=== PATIENT | female | born 1980 | race Hispanic/Latino ===

== ENCOUNTER 2016-06-04 08:51 | Inpatient (IN) | payer MEDICAID ==
[~2016-06-04] VITALS: Ht 165.1 cm; Wt 89.8 kg
[~2016-06-04 08:51] MED LIST: Carboprost 250 mCg/mL Inj IM PRN; DOCU-42 PO; Hemorrhage Kit, Post Partum XX ONE; IBUP-1149 PO; Lactated Ringer's 1,000 ML IV SCH; Methylergonovine 0.2 mg/mL Inj IM PRN; OXYC-176 PO; Oxytocin 10 Unit/mL Inj IM PRN; PREN1TAB47 PO; Sodium Citrate-Citric Acid 15 mL Solution PO SCH
[2016-06-04] MEDS ORDERED: CeFAZolin Inj 2 GM in IV Premix 1 EACH IV ONE (09:00)
[2016-06-04] MEDS ORDERED: Ondansetron 2 mg/mL 2 mL Inj ONE (10:09)
[2016-06-04] MEDS ORDERED: Morphine PF 1 mg/mL 10 mL Inj ONE (10:09)
[2016-06-04 10:12] LABS: Mean Corpuscular Hemoglobin 27.9 pg (27.0-35.0); Mean Corpuscular Volume 85.4 fL (81-100)
--- NOTE | 2016-06-04 10:45 | PCM.HPOB ---
Subjective Date of Service: Jun 04, 2016 Referring Provider: Admitting Physician: Joan Kang MD Primary Care Physician: Rosalba Hutchison MD Attending Physician: Joan Kang MD Chief Complaint Scheduled repeat CD. History of Present History of Present Illness 35 Y/O LISA 06/11/16 by LMP and consistent with 7 weeks US. complicated with: 1. Previous CDX3, PCD, FTP, then 2 elective LTCS 2008, 2010. 2. AMA 3. Declined sterilization 4. Exposure to weight loss herbal formula in first 2 weeks of . 5. GBS positive 06/06/16 Past Medical History Obstetrical History: 2003, PCD for FTP at 40 weeks , 9 lb, regional anaesthesia. 2008, RCD at 39 weeks , 8 lb, regional anaesthesia. 2010 RCD at 39 weeks 7 lb , regional Anaesthesia . Gynecologic History: Regular menstrual cycles. no Hx of STI. Medical History: non contributory Surgical History: CDX3 Hx Tobacco Use: No Hx Alcohol Use: No Past Family History Family History HTN; Father. DM: none. Cancer: none Twins: 's sisters. No FHX of congenial or developmental disease. Review of Systems ROS 10 points ROS is negative except for items mentioned in HPI. Allergy Coded Allergies: No Known Allergies (Unverified , 11/02/08) Exam Vital Signs 117/62, 81, 18, 36.9. Exam 135 moderate variabilty, positive acclerations, no declerations. TOCO: contractions every 3-5 min , pt not feeling them Constitutional: Well-developed HEENT: Atraumatic, PERRLA Lungs: Clear to Auscultation Heart: Regular Rate/Rhythm, Normal S1, Normal S2 Abdomen: Gravid (EFW 7 lb ) Extremities: Pulses Palpable x4 Neurological/Psychiatric: Alert, Oriented X3 Neuro: Reflexes 2+ Labs/Diagnostics Lab/Diagnostic Information Laboratory Tests 72 Hours Test 06/04/16 09:45 White Blood Count 9.7th/mm3 (3.8-10.1) Red Blood Count 4.26mil/mm3 (3.90-5.20) Hemoglobin 11.9g/dL (12.0-15.6) Hematocrit 36.4% (35.0-46.0) Mean Corpuscular Volume 85.4fL (81-100) Mean Corpuscular Hemoglobin 27.9pg (27.0-35.0) Mean Corpuscular Hemoglobin Concent 32.7% (32.0-37.0) Red Cell Distribution Width 14.9% (12.3-15.4) Platelet Count 245bil/L (150-400) Maternal Blood Type: O (positive) Antibody Screen: negative Group B Strep Results: Positive Rubella: Immune Additional Information Hep B Ag NR HIV NR RPR NR Quad screen negative Pap smear WNL , HPV negative 12/01/15 GC/Ct negative 12/01/15 OB Intrapartum Assessment/Plan Assessment 35 Y/O LISA 06/11/16t 39 w0d by LMP and consistent with 7 weeks US. complicated with: 1. Previous CDX3, PCD, FTP, then 2 elective LTCS 2008, 2010. 2. AMA 3. Declined sterilization 4. Exposure to weight loss herbal formula in first 2 weeks of . 5. GBS positive 06/06/16 Admit for scheduled repeat CD , declined tubal ligation. R/B/A of CD reviewed and Informed consent was signed. Joan Kang MD Jun 04, 2016 10:45
[2016-06-04] MEDS ORDERED: Morphine PF 1 mg/mL 10 mL Inj EPIDURAL ONE (13:00)
[2016-06-04] MEDS ORDERED: Oxytocin 30 Units/500 mL LR 30 UNITS in IV Premix 1 EACH IV PRN (14:05)
[2016-06-04] MEDS ORDERED: Sodium Chloride LOK Flush 10 mL Syringe IVFLUSH PRN (14:05)
[2016-06-04] MEDS ORDERED: Methylergonovine 0.2 mg/mL Inj IM PRN (14:05)
[2016-06-04] MEDS ORDERED: LANOlin HPA 7 Gm Ointment TOPICAL PRN (14:05)
[2016-06-04] MEDS ORDERED: hydrOXYzine Pamoate 25 mg Capsule PO PRN (14:05)
[2016-06-04] MEDS ORDERED: Carboprost 250 mCg/mL Inj IM PRN (14:05)
[2016-06-04] MEDS ORDERED: Oxytocin 10 Unit/mL Inj IM PRN (14:05)
[2016-06-04] MEDS ORDERED: Hemorrhage Kit, Post Partum XX ONE (14:05)
--- NOTE | 2016-06-04 14:34 | PCM.HPANE ---
Patient Data Surgeon Admitting Provider:Joan Kang MD Attending Provider:Joan Kang MD Primary Care Physician:Rosalba Hutchison MD Other Provider:Rowan Blackwell Anesthesia Reason for Visit Repeat Repeat Ht/WT & BMI Body Mass Index Allergies Coded Allergies: No Known Allergies (Unverified , 11/02/08) Medications Reported Medications Docusate Sod-Expunged Drug, Do Not Renew! 100 Mg [id number] Mg PO BID 12/17/10 IBUPROFEN-Expunged Drug, Do Not Renew! 600 Mg [id number] Mg PO Q6 12/17/10 Oxycodone/APAP-Expunged Drug, Do Not Renew! (Percocet 5/325-Expunged Drug, Do Not Renew!)1 Each Tablet1 Tab PO Q6 12/17/10 Vit/Fe Fumarate/Fa-Expunged Drug, Do (-Expunged Drug, Do Not Renew!)1 Tab Tablet1 Tab PO DAILY Ref 0 11/02/08 History Smoking Status: Never Smoker Stop/Bang Risk Assessment Category Category 1A: Patient has history of documented sleep apnea, and HAS NOT received any narcotic, sedative or anesthesia administration during this stay. Category 1B: Patient has history of documented sleep apnea, and HAS received any narcotic , sedative or anesthesia administration during this stay Category 2: Patient has SUSPECTED Obstructive Sleep Apnea, and HAS received any narcotic , sedative or anesthesia administration during this stay. Category 3: Patient has SUSPECTED Obstructive Sleep Apnea and HAS NOT received narcotic, sedative or anesthesia administration during this stay. Category 4: Outpatient in Procedural Areas with known sleep apnea or who screen positive for High Risk via the STOP/BANG questionnaire. Exam Exam General Appearance: Alert, Oriented X3, Cooperative, No Acute Distress HEENT/AIRWAY: MP 2, Neck Movement (FROM), Mouth Opening (3 FBMO) Lungs: Clear to Auscultation, Normal Air Movement Heart: Exam Unremarkable, Regular Rate/Rhythm, No Murmurs/Rubs/Gallops Meds/Labs/Diagnostics Admission Meds Current Medications Lactated Ringer's (Lr) 1,000 ml @ 125 mls/hr Q8H IV Last administered on t 09:56; Start 06/04/16 at 06:00; Stop 06/04/16 at 13:59 Citric Acid/ Sodium Citrate (Bicitra) 30 ml PREOP PO Last administered on t 09:56; Start 06/04/16 at 06:00; Stop 06/04/16 at 08:53; Status DC Labs Test 06/04/16 09:45 White Blood Count 9.7th/mm3 (3.8-10.1) Red Blood Count 4.26mil/mm3 (3.90-5.20) Hemoglobin 11.9g/dL (12.0-15.6) Hematocrit 36.4% (35.0-46.0) Mean Corpuscular Volume 85.4fL (81-100) Mean Corpuscular Hemoglobin 27.9pg (27.0-35.0) Mean Corpuscular Hemoglobin Concent 32.7% (32.0-37.0) Red Cell Distribution Width 14.9% (12.3-15.4) Platelet Count 245bil/L (150-400) Plan Impression Patient chart reviewed, patient interviewed and anesthestic plan with risks, benefits, and alternatives discussed, and informed consent obtained. NPO Status: > 8hrs ASA Physical Status: ASA1 Normal Healthy Anesthetic Plan: SAB Bene/Risks/Altern/Consents: Yes HP Complete Prior to Induction: Yes Tristen Day MD Jun 04, 2016 10:43
[2016-06-04] MEDS ORDERED: Dexamethasone 4 mg/mL Inj IVPUSH PRN (14:35)
[2016-06-04] MEDS ORDERED: fentaNYL-PF 50 mCg/mL 2 mL Inj IVPUSH PRN (14:35)
[2016-06-04] MEDS ORDERED: EPHEDrine Sulfate 50 mg/mL Inj IVPUSH PRN (14:35)
[2016-06-04] MEDS ORDERED: Atropine 0.4 mg/mL Inj IV PRN (14:35)
[2016-06-04] MEDS ORDERED: MetoCLOpramide 5 mg/mL 2 mL Inj IVPUSH PRN (14:35)
--- NOTE | 2016-06-04 14:35 | PCM.ANEP2 ---
Post Anesthesia Evaluation ASA/CMS Post Anesthesia VS in Patient's Normal Range?: Yes Resp Stable; Airway Patent?: Yes CV Function & Hydration Stable: Yes Mental Status Recovered?: Yes Pain control Satisfactory?: Yes N/V Control Satisfactory?: Yes Tristen Day MD Jun 04, 2016 14:35
--- NOTE | 2016-06-04 14:35 | PCM.ANEP1 ---
Post Anesthesia Phase 1 PACU Phase 1 Assessment Date of Service: Jun 04, 2016 Anesthetic Administered: SAB Level of Alertness: Awake, talking SILVA's with Equal Strength: No (SAB still working) Pain: No Nausea or Vomiting: No Oxygen Delivery: Room Air Lungs: Clear to Auscultation, Normal Air Movement Dermatome Level: T12 (Symphysis Pubis) Summary Vital signs within normal limits, see nursing records Tristen Day MD Jun 04, 2016 14:35
[2016-06-04] MEDS: Lactated Ringer's 1,000 ML IV SCH ×2 (14:42→21:24)
[2016-06-04] MEDS: Ondansetron 2 mg/mL 2 mL Inj IVPUSH PRN ×2 (14:42→15:22)
--- NOTE | 2016-06-04 15:18 | OP ---
[address] [address] OPERATIVE REPORT PATIENT: ROSALVA AMADOR I : 1980 MR#: [id number] ADMIT: 06/04/2016 JOB ID: [id number] DATE OF SURGERY: 06/04/2016 PREOPERATIVE DIAGNOSIS(ES): Intrauterine at 39 weeks and zero days. Previous three deliveries. POSTOPERATIVE DIAGNOSIS(ES): Status post repeat section x4. PROCEDURE: Repeat low transverse section via Pfannenstiel skin incision. COMPLICATIONS: None. SURGEON: Joan Kang MD. CORRECTIONAL AGENCY DIRECTOR: Renetta Dunham MD. Senior Data Modeler was required for retraction and exposure and safe delivery of the infant. IMPLANTS: None. BLOOD PRODUCT ADMINISTRATION: None. BLOOD LOSS: 700 mL. ANESTHESIA: Spinal. INTRAVENOUS FLUID: 2300 mL of crystalloid fluid. URINE OUTPUT: 200 mL of clear urine. SPECIMENS: Placenta was discarded. FINDINGS: A female delivered in cephalic presentation (JESICA). Apgars 8 and 9 at one and five minutes respectively. Weight 3425 g, equivalent to 7 pounds 9 ounces. Clear amniotic fluid. There were extensive intraperitoneal adhesions that limited the ability to exteriorize the uterus. Evaluation of the uterus by palpation revealed a normal uterus without any palpable masses. Normal adnexa to palpation. PROCEDURE: After informed consent was obtained, patient was taken to the operation room. She was placed under spinal anesthesia. She was placed in supine position with left lateral tilt. She was prepped and draped in usual sterile fashion for abdominal procedure. Pfannenstiel skin incision was made along the line of the previous scar. The initial skin incision was carried down to the fascia with sharp dissection and Bovie cautery. The initial fascial incision was made with a scalpel and was extended bilaterally with curved Michelle scissors. The inferior aspect of the fascia was grasped on either sides of the midline with Chrissy clamps and was dissected off the underlying rectus muscles with blunt and sharp dissection. The superior aspect of the fascial layer was grasped on either side of the midline with Chrissy clamps, and was dissected off the underlying rectus muscles with sharp dissection. Moderate amount of adhesion was noted at this level. Then, the rectus muscles were in the midline. The peritoneum was identified and entered high in the abdomen in area clear of vascularity and no adhesion. Then, the peritoneal opening was extended with sharp dissection with Metzenbaum scissors and area cleared of adhesion or any attached bowel or bladder. Then, the bladder blade was placed. The bladder reflection was identified and bladder flap was created with Metzenbaum scissors. The bladder blade was repositioned. Lower uterine incision was made with a scalpel in a transverse fashion. The incision was then extended bilaterally with bandage scissors. Amniotomy was performed. Clear fluid was noted. The delivered in cephalic position in occiput anterior position with the assistance of fundal pressure. There was no nuchal cord. Delayed cord clamp was performed after 1 minute of delivery. The infant was handed off to the waiting nursing staff. The placenta was delivered manually. The uterus was not exteriorized secondary to dense adhesions on the left side. Palpation to the uterine wall and adnexa was performed and no any palpable masses were appreciated. The uterine cavity was cleared of any remaining clots and debris. The uterine incision was closed with 0-Vicryl in a running fashion, then three [id number] stitches were placed at the uterine incision for hemostasis followed by a second imbricating layer using 0 Monocryl. A [id number] stitch was placed on the right corner of the incision for hemostasis. A bleeding serosal surface was noted at site of the bladder reflection. Flow seal was applied for hemostasis. The uterine incision was re-examined. Hemostasis was ensured. Then the rectus muscles were approximated with simple interrupted stitches of 2-0 chromic. The subfascial layer was examined and hemostasis was ensured. Then, the fascia was closed with 0-Vicryl in a running fashion. The subcutaneous layer was approximated with several interrupted stitches of 2-0 chromic. The skin was closed with 4-0 Vicryl on a Ryan needle in subcuticular fashion. Steri-Strips were applied. The patient did receive 2 g of Ancef prior to the skin incision. All instrument, needles and sponge count were correct x2. The patient and infant were transferred to the recovery room in stable condition. Joan Waite MD, was present and scrubbed for the entire procedure. CEE
[2016-06-04] MEDS: Acetaminophen IV 1,000 MG in IV Premix 1 EACH IV PRN ×2 (15:40→22:14)
[2016-06-04] MEDS ORDERED: Promethazine 25 mg/mL Inj IV PRN (17:25)
[2016-06-04] MEDS ORDERED: Promethazine Inj 25 MG in 0.9% Sodium Chloride 50 ML IV PRN (17:55)
[2016-06-05] MEDS: Acetaminophen IV 1,000 MG in IV Premix 1 EACH IV PRN (04:31)
[2016-06-05 07:20] LABS: Mean Corpuscular Hemoglobin 27.9 pg (27.0-35.0); Mean Corpuscular Volume 86.6 fL (81-100)
[2016-06-05] MEDS ORDERED: Ascorbic Acid 500 mg Tablet PO SCH (08:00)
--- NOTE | 2016-06-05 10:44 | PCM.PNOBPP ---
Subjective Date of Service Jun 05, 2016 Post : Repeat Ceserean Delivery Lochia: Normal Pain Management: PO pain meds Gastrointestinal: Good Appetite, No N/V Postop Activity: Ambulating Independently, Other (womack cath removed this AM no voiding yet. ) Group B Strep Results: Positive Rubella: Immune Blood Type: O (positive) Labs Laboratory Tests 06/05/16 07:00: White Blood Count 11.7, Red Blood Count 3.65, Hemoglobin 10.2, Hematocrit 31.6, Mean Corpuscular Volume 86.6, Mean Corpuscular Hemoglobin 27.9, Mean Corpuscular Hemoglobin Concent 32.3, Red Cell Distribution Width 14.9, Platelet Count 201 Exam Vital Signs Vital Signs 104/53 75 16 99%on RA 36.7 Vital Signs: VS reviewed, stable Exam Abdomen: Fundus firm Extremities: No edema Lungs: Clear to Auscultation Heart: Regular Rate/Rhythm, Normal S1 General: Alert, Oriented X3, Cooperative, No Acute Distress Surgical Wound : Wound Location/Description bandage removed, half soaked with blood (~ 20 cc) no active bleeding or drainage from the incision. Incision General Appearence: Radha, Steri Strips, Intact, No Erythemia, No Discharge OB Post Assessment/Plan Assessment 35 Y/O 1. POD #1 S/P Repeat CD (06/04/16) 2. Post operative Anemia started on iron BID. complicated with: 1. Previous CDX3, PCD, FTP, then 2 elective LTCS 2008, 2010. 2. AMA 3. Declined sterilization 4. Exposure to weight loss herbal formula in first 2 weeks of . 5. GBS positive 06/06/16 Appropriate post operative recovery. Monitor for voiding. Encourage ambulation. Post plan: Other (anticipate discharge home tomorrow. ) Joan Kang MD Jun 05, 2016 10:39
[2016-06-06] MEDS: oxyCODONE-Acetamin 5-325 mg Tablet PO PRN ×2 (04:31→12:09)
--- NOTE | 2016-06-06 11:54 | PCM.DIOB ---
Obstetrical Disch Instruction Date of Service: Jun 06, 2016 Dates of Hospitalization Date of Hospital Admission Jun 04, 2016 at 08:51 Providers Admitting Physician: Joan Kang MD Primary Care Physician: Rosalba Hutchison MD Attending Physician: Joan Kang MD Discharge Diagnosis Discharge Diagnosis 1. POD #2 S/P Repeat CD (06/04/16) 2. Post operative Anemia Post Operative diagnosis 1. S/P Repeat CD (06/04/16) 2. Post operative Anemia Problems: Diet Discharge Diet: No restrictions Activity Discharge Activity-General: Pelvic Rest for 6 weeks, Try not to overdue, Be up and about, Balance rest and activity, No lifting >15 pounds for 2 weeks Dressing and Incisional Care Dressing Care: Keep dressing clean, dry & intact, Allow Steri Stripes to fall off Hygiene: May shower, NO bathtub, hot tub or whirlpool Additional Instructions Discharge Instructions Follow Up Plan Follow Up Plan Please follow up with [facility]EC[employer] in 2 weeks Call your provider for: Fever or Chills, Shortness of breath, Heavy vaginal bleeding, Heavy bleeding, Epigastric pain, Excessive constipation, Vaginal discomfort, Red painful breasts Emelia Ervin DO Jun 06, 2016 11:54
[2016-06-06] MEDS ORDERED: OXYC1TAB24 PO (12:02)
[2016-06-06] MEDS ORDERED: FERR-74 PO (12:02)
[2016-06-06] MEDS ORDERED: IBUP-1827 PO (12:03)
[2016-06-06] MEDS ORDERED: DOCU-41 PO (12:04)
[2016-06-06] MEDS ORDERED: ASCO500C6 PO (12:04)
[2016-06-06 12:22] VITALS: BP 113/55; PULSE 97; RESP 18
--- NOTE | 2016-06-06 12:22 | PCM.DC.OB ---
Obstetrical Discharge Summary Date of Service Jun 06, 2016 Date of hospital admission Jun 04, 2016 at 08:51 Date of Discharge: Jun 06, 2016 Providers Admitting Physician: Joan Kang MD Primary Care Physician: Rosalba Hutchison MD Attending Physician: Joan Kang MD Diagnosis at Time of Discharge Status post repeat section x4 Post operative anemia Problems: Invasive procedures Repeat Date of Procedure: Jun 04, 2016 Brief History and Physical: Patient is a 35 Y/O female at 39 weeks LISA 06/11/16 by LMP and consistent with 7 weeks US admitted for scheduled repeat CD , declined tubal ligation. complicated with previous CDX3, PCD, FTP, then 2 elective LTCS 2008, 2010, AMA, exposure to weight loss herbal formula in first 2 weeks of , GBS positive 06/06/16. Repeat low transverse section via Pfannenstiel skin incision performed by Joan Kang MD on 06/04/2016. There were no complications.patient had post operative anemia. On the day of discharge patient's vital signs are stable, patient is alert and oriented X3, lungs are clear to auscultation, cardiovascular exam is unremarkable, abdomen is soft and moderately tender, incision site with steri strips, no erythema, edema, no signs of infection, no lower extremities edema. Patient is ambulating independently, passing flatus, urinating without difficulties, tolerating PO intake. Pain is controlled well with oral medications. She is . Post delivery laboratories came back showing hemoglobin 10.2, hematocrit 31.6, white blood cell count 11.7. She received iron supplements. The patient was discharged home in stable condition with all discharge criteria met on day two. Hospital Course: Patient is a 35 Y/O female at 39 weeks gestation admitted on 2016for scheduled repeat CD, declined tubal ligation. Repeat low transverse section via Pfannenstiel skin incision performed by Joan Kang MD on 06/04/2016. There were no complications. Patient discharged home on POD day #2. Ascorbic Acid (Vitamin C) 500 Mg Capsule.er 500 MG PO DAILY Prescribed by: SCOTTY ERVIN, DO Docusate Sod-Expunged Drug, Do Not Renew! (Docusate Sod-Expunged Drug, Do Not Renew!) 100 Mg Capsule 100 MG PO BID (Reported) Docusate Sodium (Colace) 100 Mg Capsule 100 MG PO BID PRN PRN For Constipation Prescribed by: SCOTTY ERVIN DO Ferrous Sulfate (Feosol) 325 Mg Tablet 325 MG PO BIDWM Prescribed by: SCOTTY ERVIN DO IBUPROFEN-Expunged Drug, Do Not Renew! (IBUPROFEN-Expunged Drug, Do Not Renew!) 600 Mg Tablet 600 MG PO Q6 (Reported) Ibuprofen (Ibuprofen) 600 Mg Tablet 600 MG PO QID PRN PRN For Pain Prescribed by: SCOTTY ERVIN DO Oxycodone/APAP-Expunged Drug, Do Not Renew! (Percocet 5/325-Expunged Drug, Do Not Renew!) 1 Each Tablet 1 TAB PO Q6 (Reported) Vit/Fe Fumarate/Fa-Expunged Drug, Do (-Expunged Drug, Do Not Renew!) 1 Tab Tablet 1 TAB PO DAILY (Reported) oxyCODONE-Acetaminophen 5-325 mg (oxyCODONE-Acetaminophen 5-325 mg) 1 Each Tablet 1 TAB PO Q6H PRN PRN For Pain Prescribed by: SCOTTY ERVIN DO Discharge Medications: Ferrous sulfate 325 mg PO bidwm Percocet 5-325 mg PO q6h Ibuprofen 600 mg qid Docusate 100 mg PO bid Ascorbic Acid 500 mg qd Disposition Home Discharge Diet: No restrictions Discharge Activity-General: Pelvic Rest for 6 weeks, Try not to overdue, Be up and about, Balance rest and activity, Activity as pain allows Scotty Ervin DO Jun 06, 2016 12:22
== END 2016-06-06 13:28 | disposition home or self-care (01) | DRG 766 ==
LOC: FBC 08:51 → EDSTATUS 10:45
PROVIDERS: ADMIT Obstetrics & Gynecology; ATTEND Obstetrics & Gynecology
PROC: 10D00Z1 Extraction of Products of Conception, Low, Open Approach (ICD-10-PCS; principal; 2016-06-04 10:45)
DX: O34.211 Maternal care for low transverse scar from previous cesarean delivery (principal); D64.9 Anemia, unspecified; O99.824 Streptococcus B carrier state complicating childbirth; O90.81 Anemia of the puerperium; O09.523 Supervision of elderly multigravida, third trimester; Z3A.39 39 weeks gestation of pregnancy; Z37.0 Single live birth